=== PATIENT | male | born 1945 | race Caucasian/White ===

== ENCOUNTER 2017-07-07 06:55 | Day surgery (SDC) | payer MEDICARE, BC ==
[2017-07-07] MEDS ORDERED: Lactated Ringers 1,000 ML IV SCH (07:30)
[2017-07-07] MEDS ORDERED: Midazolam 1 MG/ML 2 ML SDV ONE (08:29)
[2017-07-07] MEDS ORDERED: fentaNYL 100 MCG/2 ML SDV ONE (08:29)
[2017-07-07] MEDS ORDERED: Propofol 200 MG/20 ML SDV ONE (08:29)
[2017-07-07 10:01] VITALS: BP 111/71
--- NOTE | 2017-07-07 10:47 | OR ---
DATE OF PROCEDURE: 07/07/2017 PREOPERATIVE DIAGNOSIS: Colon cancer screening. POSTOPERATIVE DIAGNOSES: Diverticulosis and polyp 35 cm from the anal verge. PROCEDURE: Colonoscopy to the cecum with snare cautery polypectomy. ANESTHESIA: IV anesthesia with monitored anesthesia care. INDICATION: This 72-year-old white male is referred for a screening colonoscopy. He says his last colonoscopic exam was done 10 years ago. I counseled him for the procedure, including risks and alternatives, and gave his informed consent to proceed. DESCRIPTION OF PROCEDURE: The patient was placed in the left lateral decubitus position. IV anesthesia was administered by the Anesthesia Service. Time-out was held. A rectal exam was performed, which was unremarkable. It showed no prostate, which he has had removed in the past. The flexible video Olympus colonoscope was then introduced through his anus, up his rectum, and out his colon all the way to the cecum. En route, we saw a few scattered left-sided diverticula. There was no bleeding or inflammation associated with them. Additionally, en route, we saw a polyp, which was too large to remove with the biopsy forceps, at 35 cm from the anal verge. This was removed using the snare cautery polypectomy technique. This involved placing the snare about and amputating the polyp. The polyp was aspirated through the scope and captured in a polyp trap. Once the cecum was reached, the scope was slowly withdrawn, examining the mucosa throughout. No additional new mucosal abnormalities were noted. The scope was retroflexed in the rectum with the distal rectum appearing unremarkable. The scope was straightened and removed. He tolerated the procedure well. Robi Rasmussen MD /[id number]
== END 2017-07-07 10:20 | disposition home or self-care (01) ==
LOC: JP.SDS 06:55
PROVIDERS: ATTEND Surgery
DX: Z12.11 Encounter for screening for malignant neoplasm of colon (principal); D12.6 Benign neoplasm of colon, unspecified; K57.30 Diverticulosis of large intestine without perforation or abscess without bleeding; G47.33 Obstructive sleep apnea (adult) (pediatric); J44.9 Chronic obstructive pulmonary disease, unspecified; I10 Essential (primary) hypertension; I25.10 Atherosclerotic heart disease of native coronary artery without angina pectoris; Z88.1 Allergy status to other antibiotic agents; Z88.2 Allergy status to sulfonamides; Z88.8 Allergy status to other drugs, medicaments and biological substances
CPT/HCPCS: 45385; J2250; J2704; J3010; J7120; 88305

== ENCOUNTER 2018-12-07 13:38 | Outpatient (CLI) | payer MEDICARE, BC ==
[~2018-12-07 13:38] MED LIST: Bupivacaine 0.25% 10 ML SDV ONE; methylPREDNISolone Acetate 80 MG/ML SDV ONE
[2018-12-07 14:10] VITALS: BP 146/76; PULSE 57
--- NOTE | 2018-12-07 18:58 | ANES ---
DATE OF SERVICE: 12/07/2018 INDICATION: See is a 73-year-old male patient, referred to us by Dr. Beverly for an epidural steroid injection. He has never had them done. MRI was reviewed. It did show that he had mild disk bulge from L1-L3 and then disk bulge from L5-S1. Sounded like, according to the MRI, that the disk bulge from L4-5 and L5-S1 were the more significant ones. Risks and benefits were reviewed with the patient and . All of his questions were answered. The patient verbalized his understanding of the risks and benefits, and wishes to proceed with an epidural steroid injection today. Please refer to the doctor's notes for ICD-10 code and diagnosis. TECHNIQUE: The patient was then sat at the edge of the bed. Betadine prep x3 to the lumbar region was done and sterile drape was placed. 1% lidocaine skin wheal and deep was done. A 17-gauge Tuohy needle was inserted at approximately the L5-S1 spot. Loss of resistance was achieved. Negative paresthesia, negative heme, and negative CSF were noted. I then proceeded to give the patient 7 mL of sterile normal saline with 2 mL of 0.25% Sensorcaine and 1 mL of 80 mg Depo-Medrol. The Tuohy needle was then flushed and withdrawn. Sterile drape was taken down. Betadine was cleaned off his back and a Band-Aid was applied to the puncture site for hemostasis. The patient tolerated the procedure without difficulty. Please refer to the nurse's notes for vital signs. After the appropriate amount of time, the patient will be discharged per ACU protocol. David Cochran CRNA /[id number]
== END 2018-12-07 15:21 | disposition home or self-care (01) ==
LOC: JP.PAIN 13:38
PROVIDERS: ATTEND Family Medicine
DX: M46.96 Unspecified inflammatory spondylopathy, lumbar region (principal)
CPT/HCPCS: 62322; J1040; J3490

== ENCOUNTER 2020-02-12 14:56 | Emergency (ER) | payer MEDICARE, BC ==
[2020-02-12 15:10] VITALS: BP 169/85; PULSE 70
--- NOTE | 2020-02-12 15:52 | EDM.PDOC ---
ED HPI GENERAL MEDICAL PROBLEM - General Chief Complaint: General Stated Complaint: SOB POST SURGERY Time Seen by Provider: 02/12/20 15:45 Source of Information: Reports: Patient History Limitations: Reports: No Limitations - History of Present Illness INITIAL COMMENTS - FREE TEXT/NARRATIVE: This is a 74-year-old gentleman with history of recent elective AAA repair who presents with concerns of ongoing fatigue. He was discharged from the [facility] approximately 1 week ago after an open repair of a AAA. He reports since being home he has made some progress with exercise tolerance and fatigue, but continues to feel short of breath with significant exertion and low energy. He saw his PCP last week, labs were drawn and plan was for routine follow-up. He had no fever or chills. No chest pain. No cough. No bloody stools. No abdominal pain. No lower extremity swelling or pain. He reports that he is not yet back to his baseline from his presurgical self 2 weeks ago, for this reason he went to see his PCP today and was referred to the ER by the journeyman molder. - Related Data Allergies Allergy/AdvReac Type Severity Reaction Status Date / Time ciprofloxacin [From Cipro] Allergy Intermediate Hives Verified 02/12/20 15:14 ciprofloxacin HCl Allergy Intermediate Hives Verified 02/12/20 15:14 [From Cipro] atorvastatin Allergy Other Verified 02/12/20 15:14 lisinopril AdvReac Intermediate Cough Verified 02/12/20 15:14 pravastatin AdvReac Intermediate Muscle Verified 02/12/20 15:14 Aches Sulfa (Sulfonamide AdvReac Intermediate Nausea and Verified 02/12/20 15:14 Antibiotics) Vomiting Home Meds: Home Meds Aspirin [Halfprin] 81 mg PO DAILY 04/05/13 [History] Nitroglycerin 0.4 mg SL ASDIRECTED PRN 06/02/15 [History] Loperamide HCl [Imodium A-D] 6 mg PO DAILY 07/05/17 [History] Losartan [Cozaar] 100 mg PO DAILY 07/05/17 [History] Isosorbide Mononitrate [Imdur] 60 mg PO DAILY 12/07/18 [History] Rosuvastatin [Crestor] 20 mg PO DAILY 12/07/18 [History] Vit A/Vit C/Vit E/Zinc/Copper [Preservision] 2 each PO DAILY 12/07/18 [History] traMADol [Ultram] 50 mg PO Q6H PRN 12/07/18 [History] Metoprolol Tartrate 12.5 mg PO BID 02/12/20 [History] Past Medical History HEENT History: Reports: Other (See Below) Other HEENT History: central retina vein occulsion, eye lid surg Cardiovascular History: Reports: CAD, VT, Stents, Other (See Below) Other Cardiovascular History: mitral valve insufficiency and aortic valve insufficiency Respiratory History: Reports: COPD, Sleep Apnea Other Respiratory History: on Bipap at home Gastrointestinal History: Reports: Chronic Diarrhea Genitourinary History: Reports: Prostate Disorder Musculoskeletal History: Reports: Back Pain, Chronic, Osteoarthritis Other Musculoskeletal History: advanced degeneratine lower spine arthritis Neurological History: Reports: Head Trauma, Neuropathy, Peripheral Psychiatric History: Reports: Addiction Hematologic History: Reports: Blood Transfusion(s) Oncologic (Cancer) History: Reports: Prostate - Infectious Disease History Infectious Disease History: Reports: Chicken Pox, Measles, Mumps, Rubella, Shingles - Past Surgical History Head Surgeries/Procedures: Reports: None HEENT Surgical History: Reports: Tonsillectomy Cardiovascular Surgical History: Reports: AAA Repair, Coronary Artery Stent Respiratory Surgical History: Reports: Lung Biopsies GI Surgical History: Reports: Appendectomy, Colonoscopy Male Surgical History: Reports: None Neurological Surgical History: Reports: None Musculoskeletal Surgical History: Reports: None Social & Family History - Family History Family Medical History: Noncontributory - Tobacco Use Smoking Status *Q: Never Smoker - Caffeine Use Caffeine Use: Reports: Coffee ED ROS GENERAL - Review of Systems Review Of Systems: See Below Constitutional: Reports: Fatigue. Denies: Fever, Chills HEENT: Reports: No Symptoms Respiratory: Reports: Shortness of Breath. Denies: Pleuritic Chest Pain, Cough, Hemoptysis Cardiovascular: Denies: Chest Pain, Edema Endocrine: Reports: No Symptoms GI/Abdominal: Denies: Abdominal Pain, Black Stool, Bloody Stool : Reports: No Symptoms. Denies: Frequency, Urgency Musculoskeletal: Reports: No Symptoms Skin: Reports: No Symptoms Neurological: Reports: No Symptoms Psychiatric: Reports: No Symptoms Hematologic/Lymphatic: Reports: No Symptoms Immunologic: Reports: No Symptoms ED EXAM, GENERAL - Physical Exam Exam: See Below Exam Limited By: No Limitations General Appearance: Alert, No Apparent Distress Ears: Normal External Exam, Normal Canal, Hearing Grossly Normal, Normal TMs Nose: Normal Inspection Throat/Mouth: Normal Inspection Head: Atraumatic, Normocephalic Neck: Normal Inspection Respiratory/Chest: Lungs Clear Cardiovascular: Regular Rate, Rhythm, No Murmur GI/Abdominal: Soft, Non-Tender, Other (well healing laparotomy incision) Back Exam: Normal Inspection Extremities: Normal Inspection, No Pedal Edema Neurological: Alert, Oriented Psychiatric: Normal Affect, Normal Mood Skin Exam: Warm, Dry Course - Vital Signs Last Recorded V/S: Last Vital Signs Temp 36.7 C 02/12/20 15:14 Pulse 70 02/12/20 15:14 Resp 16 02/12/20 15:14 BP 169/85 H 02/12/20 15:14 Pulse Ox 99 02/12/20 15:14 - Orders/Labs/Meds Orders: Active Orders 24 hr Category Date Time Status RT Incentive Spirometry [RC] ASDIRECTED Care 02/12/20 15:53 Active - Re-Assessments/Exams Free Text/Narrative Re-Assessment/Exam: 74-year-old male who presents after recent elective AAA repair with concerns of ongoing fatigue and dyspnea. On exam he is found to have normal vital signs. His physical exam is unremarkable. Nothing to suggest infection, thrombo-venous embolism, VT, acute hemorrhage. I believe his symptoms are consistent with what would be expected postoperatively after major surgery. We discussed performing screening labs, however these were done recently in clinic and are likely to be low utility, patient declined this. I do think this is reasonable. He was supplied with an incentive spirometer. He was instructed to return to the ER for worsening symptoms. We placed a referral to his PCP for follow-up as well as a PT referral. 02/12/20 16:05 Departure - Departure Time of Disposition: 15:50 Disposition: Home, Self-Care 01 Clinical Impression: Fatigue Qualifiers: Fatigue type: unspecified Qualified Code(s): R53.83 - Other fatigue - Discharge Information Instructions: Fatigue Referrals: Rickey Arriaga NP [Primary Care Provider] - Forms: ED Department Discharge Additional Instructions: The symptoms you are experiencing are normal for a post-operative course. If you feel like your recovery is not improving, particularly if you develop new pain or difficulty breathing, please see a physician. We have placed a referred to your primary care office and to PT. Thank you for allowing us to care for you today. Sepsis Event Note (ED) - Evaluation Sepsis Screening Result: No Definite Risk - Focused Exam Vital Signs: Vital Signs Temp Pulse Resp BP Pulse Ox 02/12/20 15:14 36.7 C 70 16 169/85 H 99 02/12/20 15:09 36.7 C 70 16 169/85 H 99 - My Orders Last 24 Hours: My Active Orders 02/12/20 15:53 RT Incentive Spirometry [RC] ASDIRECTED - Assessment/Plan Last 24 Hours: My Active Orders 02/12/20 15:53 RT Incentive Spirometry [RC] ASDIRECTED
== END 2020-02-12 16:19 | disposition home or self-care (01) ==
LOC: JP.ED 14:56
DX: R53.83 Other fatigue (principal); I25.10 Atherosclerotic heart disease of native coronary artery without angina pectoris; I25.2 Old myocardial infarction; J44.9 Chronic obstructive pulmonary disease, unspecified; M19.90 Unspecified osteoarthritis, unspecified site; Z95.5 Presence of coronary angioplasty implant and graft; Z79.82 Long term (current) use of aspirin; Z79.899 Other long term (current) drug therapy; Z88.1 Allergy status to other antibiotic agents; Z88.8 Allergy status to other drugs, medicaments and biological substances; Z88.2 Allergy status to sulfonamides
CPT/HCPCS: 99283; 99284

== ENCOUNTER 2020-12-20 07:46 | Day surgery (SDC) | payer MEDICARE, BC ==
[2020-12-20] MEDS ORDERED: Midazolam 1 MG/ML 2 ML SDV ONE (07:47)
[2020-12-20] MEDS ORDERED: fentaNYL 100 MCG/2 ML SDV ONE (07:47)
[2020-12-20] MEDS ORDERED: Propofol 200 MG/20 ML SDV ONE (07:47)
[2020-12-20] MEDS ORDERED: Sodium Chloride 0.9% 1,000 ML IV SCH (08:45)
[2020-12-20 11:48] VITALS: BP 128/74; PULSE 53
--- NOTE | 2020-12-20 13:39 | PN ---
DATE OF SERVICE: 12/20/2020 The patient and I discussed his poor colon prep. He was recommended to have a repeat colonoscopy which he declined. We discussed risks, benefits, alternatives, and limitations of this. The patient also showed me a mole on his back, which appears benign in nature. However, I did recommend performing a small punch biopsy in the clinic. He also declined that. We discussed risks, benefits, alternatives, and limitations. I also discussed with him that due to the poor colon prep we could miss a colon cancer, and I also discussed with him that without taking a biopsy of the mole, we could be missing a skin cancer. The patient understood these risks and will contact us if he decides to go forward. See Mcclain MD /[id number]
--- NOTE | 2020-12-20 13:58 | OR ---
DATE OF PROCEDURE: 12/20/2020 SURGEON: See Mcclain MD PROCEDURE: Colonoscopy. FINDINGS: 1. Poor colon prep. 2. No other gross abnormalities. COMPLICATIONS: None. [employer]SM[employer]: None. ANESTHESIA: MAC. RISKS: Risks, benefits, alternatives, and limitations including, but not limited to infection, bleeding, perforation, false positives and false negatives were explained to the patient and they wished to proceed. PROCEDURE IN DETAIL: The patient was placed in left lateral decubitus position. Digital rectal exam was performed without abnormality. The scope was introduced and advanced atraumatically to the ileocecal valve. Photo was taken. The scope was brought back to the ascending, transverse, descending colon, and retroflexed. No evidence of old or new blood. No masses. No polyps. No abnormalities on retroflexion. The prep was poor with approximately 75% luminal surface could be seen. The patient will be counseled on repeat colonoscopy prior to leaving today. See Mcclain MD /[id number]
== END 2020-12-20 12:06 | disposition home or self-care (01) ==
LOC: JP.SDS 07:46
PROVIDERS: ATTEND Surgery
DX: Z12.11 Encounter for screening for malignant neoplasm of colon (principal)
CPT/HCPCS: G0121; J2250; J2704; J3010; J7030

== ENCOUNTER 2023-01-16 11:43 | Emergency (ER) | payer MEDICARE, BC ==
[2023-01-16 15:20] VITALS: BP 166/87; PULSE 54
== END 2023-01-16 15:27 | disposition home or self-care (01) ==
LOC: JP.ED 11:43
DX: S52.511A Displaced fracture of right radial styloid process, initial encounter for closed fracture (principal); S02.31XA Fracture of orbital floor, right side, initial encounter for closed fracture; I25.10 Atherosclerotic heart disease of native coronary artery without angina pectoris; I25.2 Old myocardial infarction; J44.9 Chronic obstructive pulmonary disease, unspecified; Z95.5 Presence of coronary angioplasty implant and graft; Z88.1 Allergy status to other antibiotic agents; Z88.2 Allergy status to sulfonamides; Z88.8 Allergy status to other drugs, medicaments and biological substances; Z79.82 Long term (current) use of aspirin; Z86.16 Personal history of COVID-19; Z87.891 Personal history of nicotine dependence; W18.00XA Striking against unspecified object with subsequent fall, initial encounter
CPT/HCPCS: 70450; 70486; 73110-26-RT; 73110-RT; 99283

== ENCOUNTER 2023-01-18 17:52 | Emergency (ER) | payer MEDICARE, BC ==
[2023-01-18] MEDS ORDERED: Sodium Chloride 0.9% 10 ML Syringe FLUSH PRN (17:55)
[2023-01-18 18:22] LABS: BASOPHILS ABSOLUTE AUTO 0.06 K/uL (0.00-0.10); BASOPHILS PERCENT AUTO 0.6 % (0.1-1.3); EOSINOPHILS ABSOLUTE AUTO 0.11 K/uL (0.00-0.40); EOSINOPHILS PERCENT AUTO 1.1 % (0.0-5.4); HEMATOCRIT 44.5 % (38.4-49.7); HEMOGLOBIN 14.1 g/dL (12.9-16.9); IMMATURE GRAN ABSOLUTE AUTO 0.05 K/uL (0.00-0.23); IMMATURE GRAN PERCENT AUTO 0.5 % (0.0-0.7); LYMPHOCYTES ABSOLUTE AUTO 2.27 K/uL (0.8-3.3); LYMPHOCYTES PERCENT AUTO 22.9 % (11.4-47.7); MEAN CORPUSCULAR HEMOGLOBIN 29.3 pg (31.6-35.5); MEAN CORPUSCULAR HGB CONC 31.7 g/dL (31.6-35.5); MEAN CORPUSCULAR VOLUME 92.3 fL (81.4-99.0); MONOCYTES ABSOLUTE AUTO 0.29 K/uL (0.20-0.90); MONOCYTES PERCENT AUTO 2.9 % (3.3-12.6); NEUTROPHILS ABSOLUTE AUTO 7.12 K/uL (1.0-7.6); PLATELET COUNT,PLT 204 K/uL (130-375); RED BLOOD CELL COUNT 4.82 M/uL (4.14-5.76); WHITE BLOOD CELL COUNT,WBC 9.9 K/uL (3.2-11.0)
[2023-01-18 18:48] LABS: LACTIC ACID 4.1 mmol/L (0.4-2.0)
[2023-01-18] MEDS ORDERED: Sodium Chloride 0.9% 1,000 ML IV ONE (18:49)
[2023-01-18 18:52] LABS: ALANINE AMINOTRANSFERASE,ALT 24 U/L (12-78); ALBUMIN 3.4 g/dL (3.4-5.0); ALKALINE PHOSPHATASE 71 U/L (46-116); ANION GAP 9.4 mmol/L (5.0-14.0); ASPARTATE AMNIOTRANSFERASE,AST 14 U/L (15-37); BILIRUBIN TOTAL 0.3 mg/dL (0.2-1.0); BLOOD UREA NITROGEN,BUN 25 mg/dL (7-18); CALCIUM 8.6 mg/dL (8.5-10.1); CARBON DIOXIDE,CO2 26 mmol/L (21-32); CHLORIDE,CL 107 mmol/L (100-108); CREATINE KINASE,CK 78 U/L (39-308); CREATININE 1.4 mg/dL (0.8-1.3); EST CRCL DRUG DOSING (CG) 43.43 mL/min; ESTIMATED GFR 52 mL/min (>60); GLUCOSE RANDOM 214 mg/dL (74-106); POTASSIUM,K 4.2 mmol/L (3.6-5.2); PROTEIN TOTAL,TP 6.7 g/dL (6.4-8.2); SODIUM,NA 142 mmol/L (140-148); TSH ULTRASENSITIVE 1.503 uIU/mL (0.358-3.740)
[2023-01-18 20:24] VITALS: BP 125/71; PULSE 68
[2023-01-18 21:02] LABS: BILIRUBIN,URINE NEGATIVE (NEGATIVE); COLOR,URINE YELLOW (YELLOW); GLUCOSE,URINE NEGATIVE (NEGATIVE); KETONES,URINE NEGATIVE (NEGATIVE); LEUKOCYTE ESTERASE,URINE NEGATIVE (NEGATIVE); NITRITE,URINE NEGATIVE (NEGATIVE); OCCULT BLOOD,URINE NEGATIVE (NEGATIVE); PROTEIN,URINE 30 mg/dL (NEGATIVE); UROBILINOGEN,URINE 0.2 EU/dL (0.2-1.0)
[2023-01-18 21:08] LABS: AMORPHOUS SEDIMENT,URINE NOT SEEN; APPEARANCE,URINE SLIGHTLY CLOUDY (CLEAR); BACTERIA,URINE FEW; EPITHELIAL CELLS,URINE FEW; MUCUS,URINE MANY; RBC,URINE 0-5 (0-5); WBC,URINE 0-5 (0-5)
== END 2023-01-18 21:29 | disposition home or self-care (01) ==
LOC: JP.ED 17:52
DX: S05.11XA Contusion of eyeball and orbital tissues, right eye, initial encounter (principal); S80.01XA Contusion of right knee, initial encounter; S60.211A Contusion of right wrist, initial encounter; G20 Parkinson's disease; E86.0 Dehydration; N17.9 Acute kidney failure, unspecified; I25.10 Atherosclerotic heart disease of native coronary artery without angina pectoris; R74.02 Elevation of levels of lactic acid dehydrogenase [LDH]; I25.2 Old myocardial infarction; J44.9 Chronic obstructive pulmonary disease, unspecified; Z86.16 Personal history of COVID-19; Z79.899 Other long term (current) drug therapy; Z79.82 Long term (current) use of aspirin; W19.XXXA Unspecified fall, initial encounter
CPT/HCPCS: 36415; 80053; 81001; 82550; 82947; 83605; 84145; 84443; 84484; 85025; 93005; 93010; 96360; 99284; 99285; J3490; J7030

== ENCOUNTER 2023-02-27 08:03 | Emergency (ER) | payer MEDICARE, BC ==
[2023-02-27 08:47] VITALS: BP 148/85; PULSE 66
== END 2023-02-27 10:45 | disposition home or self-care (01) ==
LOC: JP.ED 08:03
DX: S82.831A Other fracture of upper and lower end of right fibula, initial encounter for closed fracture (principal); Z88.2 Allergy status to sulfonamides; Z88.1 Allergy status to other antibiotic agents; Z88.8 Allergy status to other drugs, medicaments and biological substances; Z87.891 Personal history of nicotine dependence; W06.XXXA Fall from bed, initial encounter
CPT/HCPCS: 73610-26-RT; 73610-RT; 73630-26-RT; 73630-RT; 99283

== ENCOUNTER 2023-10-28 21:27 | Emergency (ER) | payer MEDICARE, BC ==
[2023-10-29] MEDS: Bacitracin Oint 1 GM U/D Packet TOP ONE (01:01)
[2023-10-29] MEDS: Lidocaine 1% 5 ML VIAL INJECT ONE (01:01)
[2023-10-29 01:05] VITALS: BP 147/74; PULSE 80
== END 2023-10-29 01:00 | disposition home or self-care (01) ==
LOC: JP.ED 21:27
DX: S01.81XA Laceration without foreign body of other part of head, initial encounter (principal); S20.211A Contusion of right front wall of thorax, initial encounter; I25.10 Atherosclerotic heart disease of native coronary artery without angina pectoris; J44.9 Chronic obstructive pulmonary disease, unspecified; Z88.1 Allergy status to other antibiotic agents; Z88.2 Allergy status to sulfonamides; Z88.8 Allergy status to other drugs, medicaments and biological substances; Z79.82 Long term (current) use of aspirin; Z79.899 Other long term (current) drug therapy; Z86.16 Personal history of COVID-19; Z90.49 Acquired absence of other specified parts of digestive tract; W22.8XXA Striking against or struck by other objects, initial encounter
CPT/HCPCS: 12014; 71250; 99283; 99284

== ENCOUNTER 2023-12-16 07:04 | Day surgery (SDC) | payer MEDICARE, BC ==
[2023-12-16] MEDS: Sodium Chloride 0.9% 10 ML Syringe FLUSH PRN (07:31)
[2023-12-16 08:28] VITALS: BP 141/72; PULSE 64
== END 2023-12-16 08:55 ==
LOC: JP.SDS 07:04
PROVIDERS: ATTEND Ophthalmology
DX: H25.11 Age-related nuclear cataract, right eye (principal); I10 Essential (primary) hypertension
CPT/HCPCS: 66984; J3490; V2632

== ENCOUNTER 2024-01-13 07:49 | Day surgery (SDC) | payer MEDICARE, BC ==
[2024-01-13 08:18] VITALS: BP 154/83; PULSE 61
[2024-01-13] MEDS: Sodium Chloride 0.9% 10 ML Syringe FLUSH ONE (08:46)
[2024-01-13] MEDS: Acetaminophen 325 MG Tab PO ONE (09:52)
== END 2024-01-13 09:54 | disposition home or self-care (01) ==
LOC: JP.SDS 07:49
PROVIDERS: ATTEND Ophthalmology
DX: H25.12 Age-related nuclear cataract, left eye (principal); J44.9 Chronic obstructive pulmonary disease, unspecified; I25.10 Atherosclerotic heart disease of native coronary artery without angina pectoris
CPT/HCPCS: 66984; A9270; J3490; V2632